=== PATIENT | female | born 1985 | race Caucasian/White ===

== ENCOUNTER 2016-02-19 15:19 | Emergency (ER) | payer MEDICAID ==
[~2016-02-19] VITALS: Ht 152.4 cm; Wt 65.9 kg
[~2016-02-19 15:19] MED LIST: ALBU1AER INH; CYMB60CA PO; MACR100C PO; PROZ40CA PO; ZOFR4TAB3 SL
[2016-02-19 15:21] VITALS: BP 135/81; PULSE 108; RESP 12; TEMP 98.1; O2SAT 100
[2016-02-19 16:26] LABS: BASOPHIL # 0.1 TH/MM3 (0-0.2); BASOPHIL % 0.5 % (0.0-2.0); EOSINOPHIL # 0.4 TH/MM3 (0-0.4); HEMO FLAGS DIFF FINAL; LYMPH % 25.5 % (9.0-44.0); LYMPHOCYTE # 3.2 TH/MM3 (1.0-4.8); MEAN CELL VOLUME 89.1 FL (80.0-100.0); MEAN CORPUSCULAR HEMOGLOBIN 29.5 PG (27.0-34.0); MEAN CORPUSCULAR HGB CONC 33.2 % (32.0-36.0); MONO % 6.7 % (0.0-8.0); NEUT % 64.3 % (16.0-70.0); PLATELET COUNT 378 TH/MM3 (150-450); RED BLOOD COUNT 4.38 MIL/MM3 (4.00-5.30); RED CELL DISTRIBUTION WIDTH 15.7 % (11.6-17.2); WHITE BLOOD COUNT 12.4 TH/MM3 (4.0-11.0)
[2016-02-19 16:28] LABS: BLOOD, URINE NEG (NEG); COMMENT (UR) CULT NOT INDICATED; CULTURE IF INDICATED CULT NOT INDICATED; GLUCOSE,URINE NEG (NEG); KETONE, URINE NEG (NEG); NITRITE,URINE NEG (NEG); SQUAMOUS EPITHELIAL CELL URINE 4 /hpf (0-5); URINE COLOR LIGHT-YELLOW (YELLW/STRAW)
[2016-02-19 16:45] LABS: ANION GAP 9 MEQ/L (5-15); AST (GOT) 6 U/L (15-37); BICARBONATE 24.5 MEQ/L (21.0-32.0); BLOOD UREA NITROGEN 7 MG/DL (7-18); CHLORIDE 105 MEQ/L (98-107); GLOMERULAR FILTRATION RATE 131 ML/MIN (>89); POTASSIUM 3.4 MEQ/L (3.5-5.1); SODIUM (NA) 138 MEQ/L (136-145)
[2016-02-19 16:49] LABS: ALKALINE PHOSPHATASE 81 U/L (45-117); ALT (GPT) 16 U/L (10-53); TOTAL BILIRUBIN ADULT 0.2 MG/DL (0.2-1.0)
[2016-02-19] MEDS ORDERED: TRAZ150T75 PO (19:50)
[2016-02-19] MEDS ORDERED: XANA1TAB2 PO (19:50)
[2016-02-19 19:58] VITALS: BP 148/74; PULSE 86; RESP 18; O2SAT 100
[2016-02-19] MEDS ORDERED: ONDANSETRON HCL 4 MG/2 ML VIAL IV PUSH ONE (20:00)
[2016-02-19] MEDS ORDERED: SODIUM CHLOR 0.9% 1000 ML INJ 1,000 ML IV ONE (20:00)
--- NOTE | 2016-02-19 20:01 | PD ---
HPI Chief Complaint: Abdominal Pain Time Seen by Provider: 20:01 Travel History International Travel<30 days: No Contact w/Intl Traveler<30days: No Traveled to known affect area: No History of Present Illness HPI 31-year-old female presents to the emergency department for evaluation of right upper quadrant pain that started 2 days ago. Patient does state the pain is worse with movement, denies any other aggravating factors. She denies any history of gallbladder disease. She does state she had a kidney stone in the past. Patient reports history of tubal ligation. She denies any urinary symptoms. No abnormal vaginal discharge. She states she is nauseous and has been vomiting. She denies any diarrhea or constipation. Patient denies any chance of . She denies any fevers. PFSH Past Medical History Anxiety: Yes Depression: Yes Diabetes: No (GESTATIONAL) Diminished Hearing: No Kidney Stones: Yes Respiratory: Yes (ASTHMA) Migraines: Yes Tetanus Vaccination: Unknown Influenza Vaccination: No ?: Not LMP: 02/01/2016 : 4 Para: 1 Miscarriage: 3 : 0 Ovarian Cysts: Yes (right overy removed) Tubal Ligation: Yes Past Surgical History Hysterectomy: Yes (partial) Social History Alcohol Use: Yes (occasional ETOH) Tobacco Use: Yes (0.5 ppd) Substance Use: No (denies) Allergies-Medications (Allergen,Severity, Reaction): Coded Allergies: No Known Allergies (Verified , 02/19/16) Reported Meds & Prescriptions Reported Meds & Active Scripts Active Lortab (Hydrocodone-Acetaminophen) 5-325 Mg Tab 1 Tab PO Q6H PRN Reported Trazodone (Trazodone HCl) 150 Mg Tab 150 Mg PO HS Xanax (Alprazolam) 1 Mg Tab 1 Mg PO TID PRN Review of Systems Except as stated in HPI: all other systems reviewed are Neg Physical Exam Narrative GENERAL: Well-developed well-nourished female patient, ambulatory. Afebrile. SKIN: Warm and dry. HEAD: Normocephalic. Atraumatic. EYES: No scleral icterus. No injection or drainage. NECK: Supple, trachea midline. No JVD or lymphadenopathy. CARDIOVASCULAR: Regular rate and rhythm without murmurs, gallops, or rubs. RESPIRATORY: Breath sounds equal bilaterally. No accessory muscle use. Lungs sounds clear to auscultation. GASTROINTESTINAL: Abdomen soft and nondistended. Patient has tenderness over right upper quadrant. MUSCULOSKELETAL: No cyanosis, or edema. BACK: Nontender without obvious deformity. Mild right CVA tenderness. Data Data Last Documented VS Vital Signs Date Time Temp Pulse Resp B/P Pulse Ox O2 Delivery O2 Flow Rate FiO2 02/19/16 21:17 73 18 122/59 100 02/19/16 19:58 Room Air 02/19/16 15:21 98.1 Orders Complete Blood Count With Diff (02/19/16 15:31) Comprehensive Metabolic Panel (02/19/16 15:31) Urinalysis - C+S If Indicated (02/19/16 15:31) Ed Urine Pregnancytest Poc (02/19/16 15:33) Lipase (02/19/16 16:08) Us Abdomen Gallbladder (02/19/16 ) Sodium Chlor 0.9% 1000 Ml Inj (Ns 1000 M (02/19/16 20:00) Ondansetron Inj (Zofran Inj) (02/19/16 20:00) Morphine Inj (Morphine Inj) (02/19/16 20:45) Ct Abd/Pel W/O Iv Contrast (02/19/16 ) Morphine Inj (Morphine Inj) (02/19/16 22:00) Labs Laboratory Tests Test 02/19/16 15:55 White Blood Count 12.4 TH/MM3 Red Blood Count 4.38 MIL/MM3 Hemoglobin 12.9 GM/DL Hematocrit 39.0 % Mean Corpuscular Volume 89.1 FL Mean Corpuscular Hemoglobin 29.5 PG Mean Corpuscular Hemoglobin 33.2 % Concent Red Cell Distribution Width 15.7 % Platelet Count 378 TH/MM3 Mean Platelet Volume 7.2 FL Neutrophils (%) (Auto) 64.3 % Lymphocytes (%) (Auto) 25.5 % Monocytes (%) (Auto) 6.7 % Eosinophils (%) (Auto) 3.0 % Basophils (%) (Auto) 0.5 % Neutrophils # (Auto) 8.0 TH/MM3 Lymphocytes # (Auto) 3.2 TH/MM3 Monocytes # (Auto) 0.8 TH/MM3 Eosinophils # (Auto) 0.4 TH/MM3 Basophils # (Auto) 0.1 TH/MM3 CBC Comment DIFF FINAL Differential Comment Urine Color LIGHT-YELLOW Urine Turbidity HAZY Urine pH 6.0 Urine Specific [place] 1.008 Urine Protein NEG mg/dL Urine Glucose (UA) NEG mg/dL Urine Ketones NEG mg/dL Urine Occult Blood NEG Urine Nitrite NEG Urine Bilirubin NEG Urine Urobilinogen LESS THAN 2.0 MG/DL Urine Leukocyte Esterase NEG Urine RBC 1 /hpf Urine WBC 1 /hpf Urine Squamous Epithelial 4 /hpf Cells Microscopic Urinalysis Comment CULT NOT INDICATED Sodium Level 138 MEQ/L Potassium Level 3.4 MEQ/L Chloride Level 105 MEQ/L Carbon Dioxide Level 24.5 MEQ/L Anion Gap 9 MEQ/L Blood Urea Nitrogen 7 MG/DL Creatinine 0.55 MG/DL Estimat Glomerular Filtration 131 ML/MIN Rate Random Glucose 96 MG/DL Calcium Level 8.6 MG/DL Total Bilirubin 0.2 MG/DL Aspartate Amino Transf 6 U/L (AST/SGOT) Alanine Aminotransferase 16 U/L (ALT/SGPT) Alkaline Phosphatase 81 U/L Total Protein 7.9 GM/DL Albumin 3.7 GM/DL Lipase 203 U/L MDM Medical Decision Making Medical Screen Exam Complete: Yes Emergency Medical Condition: Yes Medical Record Reviewed: Yes Interpretation(s) US gallbladder - CONCLUSION: Ultrasound appearance of the right upper quadrant within normal limits. Equivocal sonographic Rojo's sign. CT abdomen/pelvis - CONCLUSION: Negative noncontrast CT of the abdomen and pelvis. Differential Diagnosis Cholelithiasis versus cholecystitis versus nephrolithiasis versus UTI versus pancreatitis Narrative Course 31-year-old female presents to the emergency department for evaluation of right upper quadrant abdominal pain. She does have some mild right CVA tenderness as well. CBC, CMP, UA, lipase, urine test are ordered. Ultrasound of the right upper quadrant was ordered and pending. Urine test is negative. CBC shows slight leukocytosis at 12.4. CMP shows slight hypokalemia at 3.4, no other abnormalities. Lipase is 203. UA shows no evidence of acute infection. Ultrasound is within normal limits. CT abdomen/pelvis is ordered and is a Negative noncontrast CT of the abdomen and pelvis. The patient is stable for discharge. She is instructed to follow up with a primary care physician. Patient be discharged with a prescription for Lortab and for ibuprofen. She is return for any acute worsening of symptoms. Diagnosis Primary Impression: Abdominal pain Qualified Code: R10.11 - Right upper quadrant abdominal pain Referrals: Primary Care Physician call for appointment Patient Instructions: Abdominal Pain (ED), General Instructions Additional Instructions: Take ibuprofen as directed as needed with food for pain. Take Lortab for severe pain. Caution this can make you drowsy so do not drive after taking. Follow-up with a primary care physician. Return to the emergency department for any acute worsening of symptoms. Med/Other Pt SpecificInfo: Prescription(s) given Scripts Ibuprofen 600 Mg [id number] Mg PO TID PRN (PAIN SCALE 1 TO 10) #21 TAB Ref 0 Prov:Louann Ramirez 02/19/16 Hydrocodone-Acetaminophen (Lortab)5-325 Mg Tab1 Tab PO Q6H PRN (PAIN) #8 TAB Ref 0 Prov:Desi Mason MD 02/19/16 Disposition: 01 DISCHARGE HOME Condition: Stable Louann Ramirez Feb 19, 2016 20:01
[2016-02-19] MEDS ORDERED: MORPHINE SULFATE 4 MG/ML INJ IV PUSH ONE ×2 (20:45→22:00)
--- NOTE | 2016-02-19 21:05 | RADRPT ---
EXAM DATE/TIME: 02/19/2016 20:22 [facility] COMPARISON: No previous studies available for comparison. INDICATIONS : Right upper quadrant pain. MEDICAL HISTORY : Migraines. Asthma. Ovarian cysts. . kidney stones. Gestational diabetes. Depression. Anxiety . SURGICAL HISTORY : Hysterectomy. Tubal ligation. Left knee surgery. Right oophorectomy. ENCOUNTER: Initial ACUITY: 2 days PAIN SCORE: 9/10 LOCATION: Right upper quadrant MEASUREMENTS: LIVER: 15.8 cm length COMMON DUCT: 4 mm RIGHT KIDNEY: 11.3 x 6.3 x 5.1 cm FINDINGS: LIVER: Normal echotexture without focal lesion or ductal dilatation. There is normal flow velocity and direc tion within the main portal vein. COMMON DUCT: No intraluminal mass or stone visualized. GALLBLADDER: Patient subjectively tender when scanning over the gallbladder. Gallbladder wall thickness about 3.6 mm, essentially normal given the degree of minimal distention noted. There is no pericholecystic flui d. No sludge or stones are seen. PANCREAS: The visualized portions are within normal limits. RIGHT KIDNEY: No evidence of hydronephrosis, stone, or mass. CONCLUSION: Ultrasound appearance of the right upper quadrant within normal limits. Equivocal sonographic Rojo' s sign. Sony Richard MD on February 19, 2016 at 21:01 Board Certified Radiologist. This report was verified electronically.
[2016-02-19 21:17] VITALS: BP 122/59; PULSE 73; RESP 18; O2SAT 100
[2016-02-19 22:20] VITALS: BP 112/69; PULSE 70; RESP 18; O2SAT 100
--- NOTE | 2016-02-19 22:25 | RADRPT ---
EXAM DATE/TIME: 02/19/2016 22:05 [facility] COMPARISON: No previous studies available for comparison. INDICATIONS : Right lower quadrant abdominal pain. ORAL CONTRAST: No oral contrast ingested. RADIATION DOSE: 9.84 CTDIvol (mGy) MEDICAL HISTORY : None SURGICAL HISTORY : Tubal ligation. Hysterectomy. ENCOUNTER: Initial ACUITY: 1 day PAIN SCALE: 7/10 LOCATION: Right lower quadrant TECHNIQUE: Volumetric scanning of the abdomen and pelvis was performed. Using automated exposure control and ad justment of the mA and/or kV according to patient size, radiation dose was kept as low as reasonably achievable to obtain optimal diagnostic quality images. FINDINGS: LOWER LUNGS: The visualized lower lungs are clear. LIVER: Homogeneous density without lesion. There is no dilation of the biliary tree. No calcified gallston es. SPLEEN: Normal size without lesion. PANCREAS: Within normal limits. KIDNEYS: Normal in size and shape. There is no mass, stone, or hydronephrosis. ADRENAL GLANDS: Within normal limits. VASCULAR: There is no aortic aneurysm. BOWEL/MESENTERY: The stomach, small bowel, and colon demonstrate no acute abnormality. There is no free intraperitone al air or fluid. Appendix seen and appears normal. ABDOMINAL WALL: Within normal limits. RETROPERITONEUM: There is no lymphadenopathy. BLADDER: No wall thickening or mass. REPRODUCTIVE: Normal size and quite clearly present uterus. Left adnexal region appears normal. At L. clearly see t he right ovary, perhaps it was previously removed. No evidence of a adnexal mass. No free fluid. INGUINAL: There is no lymphadenopathy or hernia. MUSCULOSKELETAL: Within normal limits for patient age. CONCLUSION: Negative noncontrast CT of the abdomen and pelvis. Sony Richard MD on February 19, 2016 at 22:20 Board Certified Radiologist. This report was verified electronically.
[2016-02-19] MEDS ORDERED: HYDR-3533 PO (22:51)
[2016-02-19] MEDS ORDERED: IBUP-232 PO (23:00)
[2016-02-19 23:08] VITALS: BP 118/69
== END 2016-02-19 23:19 | disposition home or self-care (01) ==
LOC: NEPE 15:19
DX: R10.11 Right upper quadrant pain (principal); R11.0 Nausea; F17.200 Nicotine dependence, unspecified, uncomplicated; Z87.442 Personal history of urinary calculi; Z86.69 Personal history of other diseases of the nervous system and sense organs
CPT/HCPCS: 74176; 76705; 80053; 81001; 83690; 84703; 85025; 96361; 96374; 96375; 96376; 99284; J2270; J2405; J7030

== ENCOUNTER 2016-12-03 22:05 | Emergency (ER) | payer MEDICAID ==
[~2016-12-03] VITALS: Ht 152.4 cm; Wt 80.0 kg
[~2016-12-03 22:05] MED LIST changes: -ALBU1AER INH; -CYMB60CA PO; +HYDR-3533 PO; +IBUP-232 PO; -MACR100C PO; -PROZ40CA PO; +TRAZ150T75 PO; +XANA1TAB2 PO; -ZOFR4TAB3 SL
[2016-12-03] MEDS ORDERED: IOHEXOL 350 MG/ML 10 ML VIAL (for RAD DIAG) IVCONTRAST ONE (22:06)
[2016-12-03 22:07] VITALS: BP 131/88; PULSE 121; RESP 16; TEMP 98.5; O2SAT 100
[2016-12-04] MEDS ORDERED: SODIUM CHLOR 0.9% 1000 ML INJ 1,000 ML IV SCH (00:45)
[2016-12-04] MEDS ORDERED: ONDANSETRON HCL 4 MG/2 ML VIAL IV PUSH ONE (00:45)
[2016-12-04] MEDS ORDERED: MORPHINE SULFATE 2 MG/ML INJ IV PUSH ONE (00:45)
[2016-12-04] MEDS ORDERED: CLINDAMYCIN INJ 600 MG in SODIUM CHLORIDE 0.9% INJ 100 ML IV ONE (00:45)
--- NOTE | 2016-12-04 00:47 | PD ---
HPI Chief Complaint: Oral / Dental Pain or Problem Time Seen by Provider: 00:35 Travel History International Travel<30 days: No Contact w/Intl Traveler<30days: No Traveled to known affect area: No History of Present Illness HPI 31-year-old female complains of pain and swelling the right-sided face. Patient status post dental extraction 4 days ago. Patient was given prescription for penicillin which she took for 2 days. Patient states that she has allergic reaction to that and penicillin was stopped. patient was given prescription for clindamycin 300 mg 3 times a day which she took for the past 2 days. Patient also contacted her dentist and was given prescription for Flagyl which she has not started. Patient states that she has increasing pain and swelling on the right side of the face and jaw. Patient contacted the dentist was advised to go to emergency room for evaluation. Patient complains of severe pain localized to the right side of face. Patient denies any fever chills. Patient denies any chest pain or shortness of breath. PFSH Past Medical History Asthma: Yes Anxiety: Yes Depression: Yes Diminished Hearing: No Kidney Stones: Yes Respiratory: Yes (ASTHMA) Migraines: Yes Tetanus Vaccination: Unknown ?: Not LMP: 12/01/2016 : 4 Para: 1 Miscarriage: 3 : 0 Ovarian Cysts: Yes (right overy removed) Tubal Ligation: Yes Past Surgical History Section: Yes Hysterectomy: Yes (partial) Social History Alcohol Use: Yes (occasional ETOH) Tobacco Use: Yes (0.5 ppd) Substance Use: No (denies) Allergies-Medications (Allergen,Severity, Reaction): Coded Allergies: No Known Allergies (Verified , 02/19/16) Reported Meds & Prescriptions Reported Meds & Active Scripts Active Ibuprofen 600 Mg Tab 600 Mg PO TID PRN Lortab (Hydrocodone-Acetaminophen) 5-325 Mg Tab 1 Tab PO Q6H PRN Reported Trazodone (Trazodone HCl) 150 Mg Tab 150 Mg PO HS Xanax (Alprazolam) 1 Mg Tab 1 Mg PO TID PRN Review of Systems General / Constitutional: No: Fever Eyes: No: Visual changes HENT: No: Headaches Cardiovascular: No: Chest Pain or Discomfort Respiratory: No: Shortness of Breath Gastrointestinal: No: Abdominal Pain Genitourinary: No: Dysuria Musculoskeletal: No: Pain Skin: No Rash Neurologic: No: Weakness Psychiatric: No: Depression Endocrine: No: Polydipsia Hematologic/Lymphatic: No: Easy Bruising Physical Exam Narrative GENERAL: Well-nourished, well-developed patient. SKIN: Focused skin assessment warm/dry. HEAD: Normocephalic. EYES: No scleral icterus. No injection or drainage. Soft tissue swelling tenderness right side of the face around the mandible. No edema of the pharynx area. No stridor or wheezes. NECK: Supple, trachea midline. No JVD or lymphadenopathy. CARDIOVASCULAR: Regular rate and rhythm without murmurs, gallops, or rubs. RESPIRATORY: Breath sounds equal bilaterally. No accessory muscle use. GASTROINTESTINAL: Abdomen soft, non-tender, nondistended. MUSCULOSKELETAL: No cyanosis, or edema. BACK: Nontender without obvious deformity. No CVA tenderness. Neurologic exam normal. Data Data Last Documented VS Vital Signs Date Time Temp Pulse Resp B/P (MAP) Pulse Ox O2 Delivery O2 Flow Rate FiO2 12/03/16 22:07 98.5 121 16 131/88 (102) 100 Orders Orders Complete Blood Count With Diff (12/04/16 00:36) Basic Metabolic Panel (Bmp) (12/04/16 00:36) Iv Access Insert/Monitor (12/04/16 00:36) Ecg Monitoring (12/04/16 00:36) Oximetry (12/04/16 00:36) Ct Facial Bones W Iv Contrast (12/04/16 ) Sodium Chlor 0.9% 1000 Ml Inj (Ns 1000 M (12/04/16 00:45) Clindamycin Inj (Cleocin Inj) (12/04/16 00:45) Morphine Inj (Morphine Inj) (12/04/16 00:45) Ondansetron Inj (Zofran Inj) (12/04/16 00:45) Labs Laboratory Tests Test 12/04/16 00:38 [facility] Medical Decision Making Medical Screen Exam Complete: Yes Emergency Medical Condition: Yes Differential Diagnosis Differential diagnosis including cellulitis, abscess. Narrative Course 31-year-old female with pain swelling and right-sided jaw. Status post dental extraction. Patient's on clindamycin. Patient has prescription for Flagyl. Normal saline solution 1 25 cc an hour. Morphine 2 mg IV. Zofran 4 mg IV. Clindamycin 600 mg IV. Jose Woody MD Dec 04, 2016 00:47
[2016-12-04 00:52] LABS: AUTOMATED NEUTROPHIL # 5.5 TH/MM3 (1.8-7.7); BASOPHIL # 0.1 TH/MM3 (0-0.2); EOSINOPHIL # 0.2 TH/MM3 (0-0.4); EOSINOPHIL % 1.8 % (0.0-4.0); HEMATOCRIT 37.1 % (35.0-46.0); HEMO FLAGS DIFF FINAL; LYMPH % 38.3 % (9.0-44.0); LYMPHOCYTE # 4.3 TH/MM3 (1.0-4.8); MEAN CELL VOLUME 91.5 FL (80.0-100.0); MEAN CORPUSCULAR HEMOGLOBIN 30.3 PG (27.0-34.0); MEAN CORPUSCULAR HGB CONC 33.1 % (32.0-36.0); MONO % 10.4 % (0.0-8.0); NEUT % 48.5 % (16.0-70.0); PLATELET COUNT 382 TH/MM3 (150-450); RED BLOOD COUNT 4.06 MIL/MM3 (4.00-5.30); RED CELL DISTRIBUTION WIDTH 13.8 % (11.6-17.2); WHITE BLOOD COUNT 11.3 TH/MM3 (4.0-11.0)
[2016-12-04 01:02] LABS: BICARBONATE 26.7 MEQ/L (21.0-32.0); POTASSIUM 3.3 MEQ/L (3.5-5.1)
[2016-12-04 01:06] VITALS: O2SAT 98
--- NOTE | 2016-12-04 01:55 | RADRPT ---
EXAM DATE/TIME: 12/04/2016 01:19 [facility] COMPARISON: No previous studies available for comparison. INDICATIONS : Right side facial swelling post tooth extraction. IV CONTRAST: 70 cc Omnipaque 350 (iohexol) IV RADIATION DOSE: 45.10 CTDIvol (mGy) MEDICAL HISTORY : Asthma. SURGICAL HISTORY : Tubal ligation. ENCOUNTER: Initial ACUITY: 4 - 6 days PAIN SCALE: 10/10 LOCATION: Right facial TECHNIQUE: Volumetric scanning of the facial bones was performed. Using automated exposure control and adjustme nt of the mA and/or kV according to patient size, radiation dose was kept as low as reasonably achiev able to obtain optimal diagnostic quality images. DICOM format image data is available electronicall y for review and comparison. FINDINGS: ORBITS: The orbital and infraorbital osseous structures are intact. The retroconal structures have a normal configuration. No radiopaque foreign bodies are seen. NASAL BONE: The nasal bone and maxillary spine are intact ZYGOMATIC ARCHES: Symmetric without evidence of fracture. SINUSES: The maxillary, ethmoid and frontal sinuses are intact. No air-fluid levels seen. NASAL CAVITY: The nasal septum is intact and midline. The lacrimal ducts are intact. SOFT TISSUES: No radiopaque foreign bodies seen. No soft-tissue swelling is seen. INTRACRANIAL: No intracranial air seen. CRIBIFORM PLATE: Grossly intact. CONCLUSION: No evidence of abscess. Jacob Li MD on December 04, 2016 at 1:52 Board Certified Radiologist. This report was verified electronically.
[2016-12-04] MEDS ORDERED: KETOROLAC TROMETHAMINE 30 MG/ML (IVP) VIAL IV PUSH ONE (02:00)
[2016-12-04] MEDS ORDERED: TRAM50TA PO (02:10)
--- NOTE | 2016-12-04 02:10 | PD ---
Physical Exam Date Seen by Provider: Dec 04, 2016 Time Seen by Provider: 02:02 Narrative For full history and physical examination please see previous provider's note. I assumed care of and at the end of Dr. Woody shift. At that time we were waiting for the CT of the facial bones to result. We discussed plan of care prior to the end of his shift. Data Data Last Documented VS Vital Signs Date Time Temp Pulse Resp B/P (MAP) Pulse Ox O2 Delivery O2 Flow Rate FiO2 12/04/16 01:06 98 Room Air 12/03/16 22:07 98.5 121 16 Orders Orders Complete Blood Count With Diff (12/04/16 00:36) Basic Metabolic Panel (Bmp) (12/04/16 00:36) Iv Access Insert/Monitor (12/04/16 00:36) Ecg Monitoring (12/04/16 00:36) Oximetry (12/04/16 00:36) Ct Facial Bones W Iv Contrast (12/04/16 ) Sodium Chlor 0.9% 1000 Ml Inj (Ns 1000 M (12/04/16 00:45) Clindamycin Inj (Cleocin Inj) (12/04/16 00:45) Morphine Inj (Morphine Inj) (12/04/16 00:45) Ondansetron Inj (Zofran Inj) (12/04/16 00:45) Iohexol 350 Inj (Omnipaque 350 Inj) (12/03/16 22:06) Ketorolac Inj (Toradol Inj) (12/04/16 02:00) Labs Laboratory Tests Test 12/04/16 00:38 White Blood Count 11.3 TH/MM3 Red Blood Count 4.06 MIL/MM3 Hemoglobin 12.3 GM/DL Hematocrit 37.1 % Mean Corpuscular Volume 91.5 FL Mean Corpuscular Hemoglobin 30.3 PG Mean Corpuscular Hemoglobin Concent 33.1 % Red Cell Distribution Width 13.8 % Platelet Count 382 TH/MM3 Mean Platelet Volume 7.5 FL Neutrophils (%) (Auto) 48.5 % Lymphocytes (%) (Auto) 38.3 % Monocytes (%) (Auto) 10.4 % Eosinophils (%) (Auto) 1.8 % Basophils (%) (Auto) 1.0 % Neutrophils # (Auto) 5.5 TH/MM3 Lymphocytes # (Auto) 4.3 TH/MM3 Monocytes # (Auto) 1.2 TH/MM3 Eosinophils # (Auto) 0.2 TH/MM3 Basophils # (Auto) 0.1 TH/MM3 CBC Comment DIFF FINAL Differential Comment Blood Urea Nitrogen 9 MG/DL Creatinine 0.57 MG/DL Random Glucose 104 MG/DL Calcium Level 8.9 MG/DL Sodium Level 140 MEQ/L Potassium Level 3.3 MEQ/L Chloride Level 106 MEQ/L Carbon Dioxide Level 26.7 MEQ/L Anion Gap 7 MEQ/L Estimat Glomerular Filtration Rate 125 ML/MIN [facility] Medical Record Reviewed: Yes Supervised Visit with JOSE: Yes Interpretation(s) Last Impressions Maxillofacial CT 12/04/16 0000 Signed Impressions: Service Date/Time: Sunday, December 04, 2016 01:19 - CONCLUSION: No evidence of abscess. Jacob Li MD Laboratory Tests Test 12/04/16 00:38 White Blood Count 11.3 TH/MM3 Red Blood Count 4.06 MIL/MM3 Hemoglobin 12.3 GM/DL Hematocrit 37.1 % Mean Corpuscular Volume 91.5 FL Mean Corpuscular Hemoglobin 30.3 PG Mean Corpuscular Hemoglobin Concent 33.1 % Red Cell Distribution Width 13.8 % Platelet Count 382 TH/MM3 Mean Platelet Volume 7.5 FL Neutrophils (%) (Auto) 48.5 % Lymphocytes (%) (Auto) 38.3 % Monocytes (%) (Auto) 10.4 % Eosinophils (%) (Auto) 1.8 % Basophils (%) (Auto) 1.0 % Neutrophils # (Auto) 5.5 TH/MM3 Lymphocytes # (Auto) 4.3 TH/MM3 Monocytes # (Auto) 1.2 TH/MM3 Eosinophils # (Auto) 0.2 TH/MM3 Basophils # (Auto) 0.1 TH/MM3 CBC Comment DIFF FINAL Differential Comment Blood Urea Nitrogen 9 MG/DL Creatinine 0.57 MG/DL Random Glucose 104 MG/DL Calcium Level 8.9 MG/DL Sodium Level 140 MEQ/L Potassium Level 3.3 MEQ/L Chloride Level 106 MEQ/L Carbon Dioxide Level 26.7 MEQ/L Anion Gap 7 MEQ/L Estimat Glomerular Filtration Rate 125 ML/MIN Vital Signs Date Time Temp Pulse Resp B/P (MAP) Pulse Ox O2 Delivery O2 Flow Rate FiO2 12/04/16 01:06 98 Room Air 10/17/17 22:07 98.5 121 16 131/88 [phone] Narrative Course Patient presented with right lower jaw pain after having a dental extraction a few days ago. Labs and imaging were ordered by my attending physician. Labs reviewed, no acute abdomen amount is identified. CT of the facial bones shows no abscess. At this time patient will be discharged home. She is encouraged to follow up with her dentist tomorrow. She is encouraged to continue antibiotics as previously prescribed. Patient will be given a short course of oral pain medication. She was encouraged to return to emergency department for any new or worsening symptoms. Patient verbalized understanding of instructions. Patient is stable for discharge. Diagnosis Primary Impression: Pain, dental Referrals: Dentist 1 day Patient Instructions: General Instructions, Narcotic given in the ED Additional Instruction: Follow-up with your dentist tomorrow Continue previously prescribed antibiotics Do not drive or operate machinery while taking narcotic pain medication Return to emergency department for any new or worsening symptoms Med/Other Pt SpecificInfo: Prescription(s) given Scripts Tramadol (Tramadol) 50 Mg Tab 50 MG PO Q4H Y for PAIN, #10 TAB 0 Refills Prov: Claudette Barreto 12/04/16 Disposition: 01 DISCHARGE HOME Condition: Stable Claudette Barreto Dec 04, 2016 02:10
[2016-12-04] MEDS ORDERED: POTASSIUM CHLORIDE 20 MEQ CONTROLLED RELEASE TAB PO ONE (02:15)
[2016-12-04 02:39] VITALS: BP 110/68; TEMP 98
[2016-12-04 05:36] VITALS: RESP 18
== END 2016-12-04 02:40 | disposition home or self-care (01) ==
LOC: NEPD 22:05
DX: K08.89 Other specified disorders of teeth and supporting structures (principal); F17.200 Nicotine dependence, unspecified, uncomplicated
CPT/HCPCS: 70487; 80048; 85025; 96365; 96375; 99285; J1885; J2270; J2405; J7030; Q9967

== ENCOUNTER 2017-02-18 15:04 | Emergency (ER) | payer MEDICAID ==
[~2017-02-18] VITALS: Ht 152.4 cm; Wt 80.0 kg
[~2017-02-18 15:04] MED LIST changes: +TRAM50TA PO
[2017-02-18 15:09] VITALS: BP 142/77; PULSE 97; RESP 17; TEMP 98.3; O2SAT 97
[2017-02-18] MEDS ORDERED: ZOLO25TA PO (15:27)
[2017-02-18] MEDS ORDERED: HYDR-4107 PO (15:27)
[2017-02-18] MEDS ORDERED: TRAZ50TA12 PO (15:27)
[2017-02-18] MEDS ORDERED: DULO20 PO (15:27)
[2017-02-18] MEDS ORDERED: ONDANSETRON HCL 4 MG/2 ML VIAL IVP ONE (16:00)
[2017-02-18] MEDS ORDERED: SODIUM CHLORIDE 0.9% FLUSH 10 ML FLUSH IVF PRN (16:00)
[2017-02-18] MEDS ORDERED: AZITHROMYCIN 250 MG TAB PO ONE (16:00)
[2017-02-18] MEDS ORDERED: metroNIDAZOLE 500 MG TAB PO ONE (16:00)
[2017-02-18] MEDS ORDERED: SODIUM CHLOR 0.9% 1000 ML INJ 1,000 ML IV ONE (16:00)
[2017-02-18] MEDS ORDERED: LIDOCAINE HCL 1% 50 ML VIAL IM ONE (16:00)
[2017-02-18] MEDS ORDERED: cefTRIAXone 250 MG VIAL IM ONE (16:00)
[2017-02-18] MEDS ORDERED: LIDOCAINE HCL 1% 20 ML VIAL INFIL ONE (16:15)
[2017-02-18] MEDS ORDERED: MORPHINE SULFATE 2 MG/ML INJ IV PUSH ONE (16:30)
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
[2017-02-18 16:36] VITALS: BP 120/74; PULSE 82; RESP 18; O2SAT 97
[2017-02-18] MEDS ORDERED: KETOROLAC TROMETHAMINE 30 MG/ML (IVP) VIAL IV PUSH ONE (17:15)
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
[2017-02-18] MEDS ORDERED: NABU1TAB37 PO (17:33)
[2017-02-18] MEDS ORDERED: CYCL10TA PO (17:33)
[2017-02-18] MEDS ORDERED: LORazepam 2 MG/ML VIAL IV PUSH SCH (17:45)
[2017-02-18 18:17] VITALS: BP 117/82; PULSE 78; RESP 19; O2SAT 98
== END 2017-02-18 19:00 | disposition home or self-care (01) ==
LOC: PHED 15:04
DX: T74.21XA Adult sexual abuse, confirmed, initial encounter (principal); S46.911A Strain of unspecified muscle, fascia and tendon at shoulder and upper arm level, right arm, initial encounter; S76.011A Strain of muscle, fascia and tendon of right hip, initial encounter; Y07.9 Unspecified perpetrator of maltreatment and neglect
CPT/HCPCS: 73030; 73502; 87210; 87491; 87591; 96372; 96374; 96375; 99284; J0696; J1885; J2060; J2270; J2405; J7030